=== PATIENT | male | born 1960 | race Caucasian/White ===

== ENCOUNTER 2017-02-09 22:28 | Emergency (ER) | payer SELFPAY ==
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
[~2017-02-09 22:28] MED LIST: KEFLEX; PROZAC40 M1 PO
== END 2017-02-09 23:55 | disposition home or self-care (01) ==
LOC: SED 22:28
DX: S02.2XXA Fracture of nasal bones, initial encounter for closed fracture (principal); M70.42 Prepatellar bursitis, left knee; F17.210 Nicotine dependence, cigarettes, uncomplicated; F32.9 Major depressive disorder, single episode, unspecified; Y04.0XXA Assault by unarmed brawl or fight, initial encounter; Y92.89 Other specified places as the place of occurrence of the external cause
CPT/HCPCS: 70160; 99283

== ENCOUNTER 2017-02-12 17:51 | Emergency (ER) | payer SELFPAY ==
--- NOTE | ~2017-02-12 | US85 ---
[facility] A Service of [facility] RADIOLOGY TEXT RESULTS PATIENT: RODRICK HILLIARD LOCATION: [facility] : 56 UNIT #: [id number] AGE: [address]: Millie Christie MD SEX: M ORDER DR: [id number] [facility] [address] [place], [place] [address] [id number] E MR#: [id number] Acc #: [id number] NAME: RODRICK HILLIARD. : 1960 SEX: M STUDY DATE/TIME: 02/12/2017 17:33 UNIT: [facility] ROOM: STUDY DESCRIPTION: [facility] [employer] Attending Physician: Millie Christie M.D. Ordering Physician: Millie Christie M.D. Primary Care Physician: Terence Angeles M.D. MEDICAL IMAGING REPORT This report is preliminary unless electronic signature is present EXAM Left lower extremity venous ultrasound HISTORY Left lower extremity pain and swelling for 1 week. No injury. TECHNIQUE Venous ultrasound examination of the left lower extremity was performed using grayscale, spectral Doppler and color flow Doppler imaging. FINDINGS The examination is negative. There is no evidence of left lower extremity deep venous thrombus from the groin to the lower calf. Visualized greater saphenous vein is also patent. IMPRESSION Negative examination. No evidence of left lower extremity deep venous thrombosis. Dictated by... Steve Bray M.D. THIS IS AN ELECTRONICALLY VERIFIED REPORT Steve Bray M.D. at 02/13/2017 2:40 PM SILVINO/jeronimo TD: 02/12/2017 20:57 JOB #: [id number] MEDICAL IMAGING REPORT Page 1 of 1 COPY
== END 2017-02-12 19:40 | disposition home or self-care (01) ==
LOC: CED 17:51
DX: M79.89 Other specified soft tissue disorders (principal); F32.9 Major depressive disorder, single episode, unspecified; F17.210 Nicotine dependence, cigarettes, uncomplicated; Z98.890 Other specified postprocedural states
CPT/HCPCS: 93971; 99284